=== PATIENT | female | born 2000 | race Two or more races ===

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

== ENCOUNTER → 2018-06-22 | Outpatient (REF) | payer OTHER ==
[2018-06-22 19:33] LABS: FREE T4 0.82 NG/DL (0.78-1.33)
== END ==
LOC: M SFHCADAM 11:34
DX: F32.9 Major depressive disorder, single episode, unspecified (principal)
CPT/HCPCS: 84443

== ENCOUNTER → 2018-09-22 | Outpatient (REF) | payer OTHER ==
[2018-09-22 13:38] LABS: CHLAMYDIA DNA AMPLIFICATION NEGATIVE (NEGATIVE); GC DNA AMPLIFICATION NEGATIVE (NEGATIVE)
== END ==
LOC: M SFHCWAGY 11:38
PROVIDERS: ATTEND Nurse Practitioner Family
DX: Z11.3 Encounter for screening for infections with a predominantly sexual mode of transmission (principal)